=== PATIENT | female | born 1980 | race Caucasian/White ===

== ENCOUNTER 2023-08-09 10:11 | Observation (INO) ==
[2023-08-09] MEDS ORDERED: NS 0.9% 1000 ml BAG 1,000 ML IV ONE ×2 (10:43→11:51)
[2023-08-09 11:41] LABS: Hematocrit 28.7 % (35-45); Hemoglobin 9.5 g/dL (11.5-14.3); Mean Corpuscular Hgb Conc 33.1 g/dL (31-36); Mean Corpuscular Volume 87.7 fL (80-97); Mean Platelet Volume 9.8 fL (7.5-11.2); Platelet Count 157 10^3/uL (150-450); Red Blood Count 3.27 10^6/uL (3.63-4.92); Red Cell Distribution Width 24.4 % (12-17); White Blood Count 5.7 10^3/uL (3.8-11.8)
[2023-08-09 11:42] LABS: ABS Basophils 0.1 10^3/uL (0.0-0.1); ABS Eosinophils 0.2 10^3/uL (0.0-0.5); ABS Lymphocytes 1.4 10^3/uL (1.0-4.8); ABS Monocytes 0.4 10^3/uL (0.0-0.9); ABS Neutrophils 3.7 10^3/uL (1.5-7.6); Creatinine, Serum 0.75 mg/dL (0.51-0.95); Eosinophil % 3.9 %; Lymphocyte % 24.4 %; Potassium 3.4 mmol/L (3.5-5.0); eGFR CKD-EPI 101.9 (>60)
[2023-08-09] MEDS ORDERED: Antihemophilic Factor/Von Wil 500 UNIT VIAL (dose=VWF) IV ONE ×2 (13:00→21:00)
[2023-08-09] MEDS ORDERED: Antihemophilic Factor/Von Wil 1000 UNIT VIAL (dose=VWF) IV ONE ×2 (13:00→21:00)
[2023-08-09 13:20] LABS: Anisocytosis 2+
[2023-08-09] MEDS ORDERED: ceFOXitin 2 GM IVPREMIX 2 GM/50 ML BAG IVPB ONE (14:04)
[2023-08-09] MEDS ORDERED: Lidocaine 1% VIAL 10 MG/ML 30 ML VIAL ONE (14:20)
[2023-08-09] MEDS ORDERED: Dexamethasone IV 4 MG/ML VIAL 1 ml VIAL ONE (14:35)
[2023-08-09] MEDS ORDERED: fentaNYL 100 mcg/2 ml 50 MCG/ML VIAL ONE (14:35)
[2023-08-09] MEDS ORDERED: Lidocaine 2% PF 5 ML VIAL ONE (14:35)
[2023-08-09] MEDS ORDERED: Midazolam 2 mg/2 ml VIAL 1 mg/ml 2 ml VIAL (2 mg) ONE (14:35)
[2023-08-09] MEDS ORDERED: Ondansetron 4 mg VIAL 2 MG/ML 2 ml VIAL ONE (14:35)
[2023-08-09] MEDS ORDERED: Propofol 10 MG/ML 20 ML BTL ONE ×2 (14:35→15:45)
[2023-08-09] MEDS ORDERED: ceFOXitin 2 GM IVPREMIX 2 GM/50 ML BAG ONE (14:38)
[2023-08-09] MEDS ORDERED: Phenylephrine 40 mcg/mL 10mL (400mcg) SYRINGE ONE (15:25)
[2023-08-09] MEDS ORDERED: Naloxone 0.4 mg VIAL 0.4 mg/ml 1 ml VIAL IV PRN (15:29)
[2023-08-09] MEDS ORDERED: HYDROmorphone 1 MG/1 ML SYRINGE IV PRN (15:29)
[2023-08-09] MEDS ORDERED: Ondansetron 4 mg VIAL 2 MG/ML 2 ml VIAL IV PRN (15:29)
[2023-08-09] MEDS ORDERED: Acetaminophen IV 1 GM/100ML 1,000 MG/100 ML BAG IV PRN (15:29)
[2023-08-09] MEDS ORDERED: fentaNYL 100 mcg/2 ml 50 MCG/ML VIAL IV PRN (15:29)
[2023-08-10] MEDS ORDERED: Antihemophilic Factor/Von Wil 500 UNIT VIAL (dose=VWF) IV ONE ×2 (06:00→16:00)
[2023-08-10] MEDS ORDERED: Antihemophilic Factor/Von Wil 1000 UNIT VIAL (dose=VWF) IV ONE ×3 (06:00→16:00)
[2023-08-10 07:37] LABS: Hematocrit 23.9 % (35-45); Hemoglobin 7.9 g/dL (11.5-14.3); Mean Corpuscular Hemoglobin 29.1 pg (27-33); Mean Corpuscular Hgb Conc 33.2 g/dL (31-36); Mean Corpuscular Volume 87.5 fL (80-97); Mean Platelet Volume 10.3 fL (7.5-11.2); Platelet Count 114 10^3/uL (150-450); Red Blood Count 2.73 10^6/uL (3.63-4.92); Red Cell Distribution Width 24.5 % (12-17); White Blood Count 9.1 10^3/uL (3.8-11.8)
[2023-08-10 08:14] LABS: ABS Monocytes 0.3 10^3/uL (0.0-0.9); ABS Neutrophils 7.7 10^3/uL (1.5-7.6); Eosinophil % 0.1 %; Lymphocyte % 11.4 %
[2023-08-10 10:42] VITALS: BP 100/76
[2023-08-10] MEDS ORDERED: Iron Sucrose 200 MG in NS 0.9% 100 ml IVPB ONE (12:00)
[2023-08-12 10:56] LABS: Coagulation F VIII Activity 81 % (55 - 200); von Willebrand Factor Activity 77 % (55 - 200)
== END 2023-08-10 18:25 | disposition home or self-care (01) ==
LOC: EDHOLD 10:11 → ED 10:11 → AA 14:24 → SSU 16:55
PROVIDERS: ADMIT Obstetrics & Gynecology; ATTEND Obstetrics & Gynecology